=== PATIENT | male | born 1940 | race Caucasian/White ===

== ENCOUNTER 2017-03-31 15:15 | Outpatient (CLI) | payer MEDICARE ==
--- NOTE | 2017-04-01 08:02 | CT Report ---
CT HEAD WITHOUT CONTRAST: 03/31/2017 CLINICAL INDICATION: Slurred speech, loss of balance. COMPARISON: 05/22/2008, MRI 05/24/2008. TECHNIQUE: In accordance with CT protocol optimization, one or more of the following dose reduction techniques w ere utilized for this exam: automated exposure control, adjustment of mA and/or KV based on patient size, or use of iterative reconstructive technique. The ventricles and sulci demonstrate symmetric enlargement, compatible with atrophy. Extensive chron ic ischemic changes are seen in the periventricular white matter structures. There is no evidence of acute hemorrhage, mass effect, or midline shift. The basilar cisterns are patent. The visualized o rbital contents and paranasal sinuses are unremarkable. IMPRESSION: ATROPHY AND CHRONIC ISCHEMIC CHANGES. NO EVIDENCE OF ACUTE HEMORRHAGE OR MASS EFFECT. JOB #: [id number] EXT JOB #:[id number]
== END 2017-03-31 15:16 | disposition home or self-care (01) ==
LOC: DI 15:15
PROVIDERS: ATTEND Nurse Practitioner Family
DX: R47.81 Slurred speech (principal); R26.81 Unsteadiness on feet; G31.9 Degenerative disease of nervous system, unspecified; I67.82 Cerebral ischemia
CPT/HCPCS: 70450

== ENCOUNTER 2017-04-09 06:46 | Outpatient (CLI) | payer MEDICARE ==
[2017-04-09 07:09] LABS: BASOPHILS # (AUTO) 0.1 10^3/uL (0.0-0.1); BASOPHILS % (AUTO) 2.3 %; EOSINOPHILS # (AUTO) 0.1 10^3/uL (0.0-0.7); EOSINOPHILS % (AUTO) 2.2 %; HCT - HEMATOCRIT 43.9 % (42.0-52.0); HGB - HEMOGLOBIN 14.3 g/dL (14.0-18.0); LYMPHOCYTES # (AUTO) 1.2 10^3/uL (1.5-3.5); LYMPHOCYTES % (AUTO) 27.6 %; MEAN CORPUSCULAR HEMOGLOBIN 29.3 pg (27.0-31.0); MEAN CORPUSCULAR HGB CONC 32.4 g/dL (32.0-36.0); MEAN CORPUSCULAR VOLUME 90.2 fL (80.0-94.0); MEAN PLATELET VOLUME 9.3 fL (7.4-11.4); MONOCYTES # (AUTO) 0.5 10^3/uL (0.0-1.0); MONOCYTES % (AUTO) 10.4 %; NEUTROPHILS # (AUTO) 2.5 10^3/uL (1.5-6.6); NEUTROPHILS % (AUTO) 57.5 %; NUCLEATED RED BLOOD CELLS AUTO 0.1 /100WBC; RED BLOOD COUNT 4.87 10^6/uL (4.70-6.10); RED CELL DISTRIBUTION WIDTH 14.7 % (12.0-15.0); UNCORRECTED WHITE BLOOD COUNT 4.4 x10^3/uL; WHITE BLOOD COUNT 4.4 x10^3/uL (4.8-10.8)
[2017-04-09 07:26] LABS: ALBUMIN/GLOBULIN RATIO 1.3 (1.0-2.2); BILIRUBIN,TOTAL 0.8 mg/dL (0.2-1.0); CALCIUM 9.5 mg/dL (8.5-10.3); CREATININE 0.8 mg/dL (0.6-1.2); POTASSIUM 4.1 mmol/L (3.5-5.0); TOTAL PROTEIN 6.9 g/dL (6.7-8.2)
[2017-04-09] MEDS ORDERED: GADOBUTROL 7.5 MMOL/7.5 ML VIAL IVP ONE (08:58)
--- NOTE | 2017-04-09 11:18 | MRI Report ---
EXAM MRA BRAIN EXAM DATE: 04/09/2017 08:20 AM. CLINICAL HISTORY: STROKE LIKE SYMPTOMS, IMBALANCE, GARBLED SPEECH. COMPARISON: MRI brain from today. TECHNIQUE: Multiplanar, multisequence MRA sequences of the brain were performed. Other: None. Post-pr ocessing: Multiplanar 3D MIP reconstructions. IV Contrast: None. FINDINGS: The left vertebral artery is dominant. No hemodynamically significant stenosis is seen in either dist al vertebral artery. There is mild narrowing of the distal basilar trunk . The right posterior cerebr al artery demonstrates areas of mild to moderate narrowing at the level of the P2 and P3 segments There is a tortuous anterior communicating artery present. There is an infundibular origin to an ante rior choroidal ranch on the right. A posterior communicating artery is seen on the left. Ophthalmic a rtery origins are tortuous. No outpouching of flow related enhancement is seen in a pattern to sugges t an aneurysm. No hemodynamically significant stenosis is present in the anterior circulation IMPRESSION: 1. No hemodynamically significant stenosis is present in the anterior circulation 2. Mild stenosis is seen involving the distal basilar trunk and mild to moderate stenosis is seen inv olving the left PUMPER GAGER [facility] Referring Provider Line: [phone] SITE ID: [id number]
--- NOTE | 2017-04-09 11:46 | MRI Report ---
EXAM: MRI BRAIN WITHOUT AND WITH CONTRAST EXAM DATE: 04/09/2017 09:00 a.m. CLINICAL HISTORY: Stroke-like symptoms for several days, imbalance, garbled speech. COMPARISON: MRA brain same date. CT head 03/31/2017. TECHNIQUE: Multiplanar, multisequence T1-weighted and fluid-sensitive MR sequences of the brain were performed. Sequences optimized for routine evaluation. Other: None. Without and with IV Contrast: 6 m L Gadavist. FINDINGS: There is patchy restricted diffusion signal involving the posterior aspect of the globus pallidus ext ending near the posterior limb the internal capsule on the left. This measures up to 18 mm in size an terior posterior. There is low ADC map signal. A 5 mm focus of restricted diffusion signal is seen in subcortical white matter of the left precentra l gyrus. A punctate focus of restricted diffusion signal is seen in the right cerebellar white matter . No definite low ADC map signal is seen in these regions No extra-axial fluid collection is present. A small focus of magnetic susceptibility is seen in the mesial right temporal lobe in the region of t he hippocampus. There is encephalomalacia in the inferior aspect of each cerebellar hemisphere with associated adjace nt FLAIR signal. There are T2 hyperintensities in the cerebellum bilaterally which are seen measuring up to 12 mm on the left. These are associated with adjacent FLAIR signal. Patchy t2 and flair hyperi ntense signal is seen in the central rachael. Confluent FLAIR hyperintense signal is seen in the cerebra l hemisphere white matter bilaterally. Remote lacunar infarcts are seen in the basal ganglia bilatera lly and in the pulvinar of the left thalamus. No enhancing mass is identified in the brain parenchyma. Expected enhancement is seen in the major dural venous sinuses. Areas of low t1-weighted signal are seen in the corpus callosum. No cerebellar tonsillar ectopia is identified. No mass is present in either orbit. IMPRESSION: 1. Acute to subacute infarcts are seen involving the white matter of the right precentral gyrus, left globus pallidus, and right cerebellar white matter. The globus pallidus focus on the left appears to be the most acute based on MRI signal characteristics 2. 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 3. Extensive small vessel ischemic change is seen throughout the cerebral hemisphere white matter nirali aterally. 4. Focus of remote microhemorrhage is seen in the region of the hippocampus on the right. These are n onspecific and can be the sequela of prior trauma, the sequelae of a prior hemorrhagic stroke, seen i n association with chronic hypertension, and seen in cerebral amyloid angiopathy. 5. No enhancing mass is present. The ordering physician was phoned with the results at 9:55 a.m. on 04/09/2017 Note: A prior MRI dated 05/24/2008 became available for comparison. The patient's cerebellar infarcts have developed in the interim since this comparison study. The small vessel ischemic change throughout the cerebral hemisphere white matter has progressed since this comparison study as has the small vessel ischemic change in the central rachael. The posterior left thalamic lacunar infarct might have been present on this comparison study. [facility] Referring Provider Line: [phone] SITE ID: [id number]
== END 2017-04-09 06:47 | disposition home or self-care (01) ==
LOC: DI 06:46
PROVIDERS: ATTEND Physician Assistant
DX: R29.818 Other symptoms and signs involving the nervous system (principal); D64.9 Anemia, unspecified; R26.89 Other abnormalities of gait and mobility; G82.20 Paraplegia, unspecified; R47.81 Slurred speech; I63.9 Cerebral infarction, unspecified
CPT/HCPCS: 36415; 70544; 70553; 80053; 85025; A9585

== ENCOUNTER 2017-04-25 09:22 | Outpatient (CLI) | payer MEDICARE ==
--- NOTE | 2017-04-25 16:00 | Ultrasound Report ---
EXAM: CAROTID DOPPLER ULTRASOUND EXAM DATE: 04/25/2017 09:35 a.m. CLINICAL HISTORY: Cerebral infarction, unspecified. COMPARISON: None. TECHNIQUE: Real-time sonographic vascular imaging was performed by the mine engineering manager through the caroti d arterial system with a linear transducer utilizing color-flow, Doppler flow and spectral analysis. Multiple dental sales representative static images were saved for review. FINDINGS: Right: There is calcified plaquing in the right carotid bifurcation, without evidence of a focal hemo dynamically significant stenosis. Left: There is calcified plaquing in the left carotid bifurcation, without evidence of a focal hemody namically significant stenosis. The vertebral arteries demonstrate antegrade flow bilaterally. RIGHT: RCCA Prox: PSV 100.1 cm/sec. RCCA Dist: PSV 124 cm/sec, EDV 30 cm/sec. RECA: PSV 64 cm/sec. R Bulb: PSV 104 cm/sec, EDV 21 cm/sec, ICA/CCA ratio 0.83.. NEMESIO Prox: PSV 89 cm/sec, EDV 22 cm/sec, ICA/CCA ratio 0.71. NEMESIO Mid: PSV 49 cm/sec, EDV 9.2 cm/sec, ICA/CCA ratio 0.39. NEMESIO Dist: PSV 73 cm/sec, EDV 22 cm/sec, ICA/CCA ratio 0.58. RVA: PSV 69 cm/sec. RVA flow direction: Antegrade. LEFT: LCCA Prox: PSV 115 cm/sec. LCCA Dist: PSV 114 cm/sec, EDV 24 cm/sec. LECA: PSV 132 cm/sec. L Bulb: PSV 119 cm/sec, EDV 23 cm/sec, ICA/CCA ratio 1.04. LICA Prox: PSV 101 cm/sec, EDV 22 cm/sec, ICA/CCA ratio. 0.88 LICA Mid: PSV 92 cm/sec, EDV 22 cm/sec, ICA/CCA ratio. 0.80 LICA Dist: PSV 103 cm/sec, EDV 35 cm/sec, ICA/CCA ratio. 0.90 LVA: PSV 62 cm/sec. LVA flow direction: Antegrade. Comments: CCA: Wall thickening greater than 1.2 mm. Other: None. IMPRESSION: No hemodynamically significant stenoses. Validated velocity measurements with angiographic measurements and velocity criteria are extrapolated from diameter data as defined by the Society of Radiologists in Ultrasound Consensus Conference Radi ology 2003; 229;340-346. [facility] Referring Provider Line: [phone] SITE ID: [id number]
== END 2017-04-25 09:23 | disposition home or self-care (01) ==
LOC: DI 09:22
PROVIDERS: ATTEND Internal Medicine
DX: I63.9 Cerebral infarction, unspecified (principal)
CPT/HCPCS: 93306; 93880

== ENCOUNTER 2018-08-27 07:02 | Outpatient (CLI) | payer MEDICARE | END 2018-08-27 07:03 | disposition E | LOC: EMS 07:02 | PROVIDERS: ATTEND Surgery | DX: S01.90XA Unspecified open wound of unspecified part of head, initial encounter (principal) ==